=== PATIENT | male | born 1940 | race Caucasian/White ===

== ENCOUNTER 2021-10-31 19:34 | Emergency (ER) | payer OTHER ==
[2021-10-31 19:40] VITALS: BP 137/80; PULSE 67; TEMP 97.8; BMI 29.0
[2021-10-31 20:37] LABS: BASO % 1.1 % (0-2.0); EOS % 1.9 % (0-4.5); HEMATOCRIT 44.9 % (35.4-49); HEMOGLOBIN 15.1 GM/dL (11.7-16.9); LYMPH % 27.8 % (8-40); MCH 33.7 pg (25.7-33.7); MCHC 33.6 g/dl (32.0-35.9); MEAN CELL VOLUME 100.3 fl (80-96); MEAN PLT VOLUME 9.9 fl (7.5-11.1); MONO % 13.8 % (3.8-10.2); NEUT % 55.4 % (42.8-82.8); PLATELET COUNT 107 10^3/uL (134-434); RBC 4.47 M/mm3 (4.00-5.60); RDW 14.5 % (11.9-15.9); WHITE BLOOD COUNT 5.8 K/mm3 (4.0-10.0)
[2021-10-31 20:57] LABS: CALCIUM 8.7 mg/dL (8.5-10.1)
[2021-10-31 20:58] LABS: ALBUMIN 3.2 g/dl (3.4-5.0)
[2021-10-31 21:01] LABS: CREATININE 1.3 mg/dL (0.55-1.3)
[2021-10-31 21:03] LABS: BILIRUBIN,TOTAL 0.7 mg/dL (0.2-1); TOT PROT 6.7 g/dl (6.4-8.2)
== END 2021-10-31 21:31 | disposition home or self-care (01) ==
LOC: JER 19:34
DX: K64.9 Unspecified hemorrhoids (principal)
CPT/HCPCS: 36415; 80053; 85025; 99283-25